=== PATIENT | female | born 1955 | race African-American/Black ===

== ENCOUNTER 2024-01-21 05:12 | Emergency (ER) | payer OTHER, SELFPAY ==
[2024-01-21] MEDS ORDERED: Propofol 1,000 MG/100 ML VIAL IV ONE (05:20)
[2024-01-21 05:46] LABS: #Basophils 0.07 10x3/uL (0.0-0.2); #Eosinphils 0.24 10x3/uL (0.0-0.5); #Monocytes 0.84 10x3/uL (0.0-1.1); #Neutrophils 4.22 10x3/uL (1.5-8.4); %Basophils 0.7 % (0.0-2.0); %Eosinophils 2.4 % (0.0-6.0); %Lymphocytes 45.7 % (18.0-47.0); %Monocytes 8.4 % (0.0-10.0); %Neutrophils 42.3 % (40.0-75.0); Hematocrit 48.3 % (34.9-44.5); Hemoglobin 16.1 g/dL (12.0-15.5); Mean Corpuscular HGB CONC 33.3 g/dL (32.0-36.0); Mean Corpuscular Hemoglobin 32.4 pg (27.0-33.0); Mean Corpuscular Volume 97.2 fL (81.6-98.3); Mean Platelet Volume 12.3 fL (7.4-10.4); Platelet Count 242 10x3/uL (150-450); RBC Distribution Width 15.4 % (11.5-14.5); Red Blood Cell (RBC) Count 4.97 10x6/uL (3.90-5.03)
[2024-01-21 06:00] LABS: PTT 25.7 sec (22.0-33.0); Prothrombin Time 11.3 sec (9.5-12.1)
[2024-01-21 06:02] LABS: ALT (SGPT) 13 U/L (8-55); AST (SGOT) 21 U/L (5-34); Albumin 3.2 g/dL (3.4-4.8); Alkaline Phosphatase 104 U/L (40-110); Anion Gap 18 mmol/L (10-20); BUN (Urea Nitrogen) 7 mg/dL (9.8-20.1); Bilirubin, Total 0.3 mg/dL (0.2-1.2); Calc. Creatinine Clearance 0 mL/min (70-130); Calcium 8.8 mg/dL (7.8-10.44); Carbon Dioxide 26 mmol/L (23-31); Chloride 98 mmol/L (98-107); Estimated GFR 60; Globulin 4.2 g/dL (2.4-3.5); Glucose 168 mg/dL (80-115); Lipase 26 U/L (8-78); Magnesium 1.9 mg/dL (1.6-2.6); Potassium 4.6 mmol/L (3.5-5.1); Protein, Total 7.4 g/dL (5.8-8.1); Sodium 137 mmol/L (136-145)
[2024-01-21 06:08] LABS: Troponin I 0.047 ng/mL (< 0.028)
[2024-01-21 06:10] LABS: ALV-art Gradient 399.475 mmHg (0-20); Actual Bicarbonate (HCO3a) 24.8 mEq/L (22-28); Analyzer IN Cardio CS NICU; Base Excess (BEa) -3.4 mEq/L (-2.0 to +3.0); CO2 Tension 57.3 mmHg (35.0-45.0); Calcium, Ionized (arterial) 1.06 mmol/L (1.12-1.30); Carboxyhemoglobin (COHb) 10.7 gm% (0.0-3.0); Hematocrit-ABG 45 % (36.0-47.0); Hemoglobin (Hb) 15.3 g/dL (12.0-16.0); O2 Tension (PaO2), arterial 241.9 mmHg (> 80.0); Puncture Site LRA; pH, Arterial 7.254 (7.35-7.45)
[2024-01-21] MEDS ORDERED: niCARdipine 25 MG/10 ML SDV ONE (06:10)
== END 2024-01-21 06:34 | disposition short-term general hospital (02) ==
LOC: EDBD 05:12 → CSHERS 05:12
DX: I60.9 Nontraumatic subarachnoid hemorrhage, unspecified (principal); R41.82 Altered mental status, unspecified
CPT/HCPCS: 36600; 70450; 71045; 80053; 82805; 83690; 83735; 84484; 85025; 85610; 85730; 93005; 94002; 96374; 96375; J2704